=== PATIENT | male | born 1965 | race African-American/Black ===

== ENCOUNTER → 2020-11-15 | Outpatient (CLI) | payer OTHER ==
[2020-11-15] VITALS (12 sets, daily range): BP systolic 130–147; BP diastolic 78–95
[~2020-11-15] VITALS: Ht 175.3 cm; Wt 108.9 kg
[~2020-11-15] MED LIST: ASA81BEC PO; ATORVASTATIN CA80 MG PO; DILTIAZEM ER180 M2 PO; SINGULAIR 10 MG10 M1 PO
[2020-11-15 10:04] LABS: HEMATOCRIT 45.2 % (42.0-52.0); HEMOGLOBIN 14.9 gm/dL (14.0-18.0); MCH 31.3 pg (26.0-34.0); MCHC 32.9 g/dL (28.0-37.0); MCV 95.1 fL (80.0-100.0); MPV 9.1 fl. (7.2-11.1); RBC 4.76 mil/uL (4.50-6.00); WBC 5.8 thou/uL (4.0-11.0)
[2020-11-15 10:16] LABS: APTT 26.5 Seconds (25.0-31.3); INR 1.2; PROTIME 12.4 Seconds (9.20-11.50)
[2020-11-15 10:20] LABS: CALCIUM 8.9 mg/dL (8.5-10.1); CREATININE 1.3 mg/dL (0.6-1.3); POTASSIUM 3.9 mmol/L (3.5-5.1)
[2020-11-15 10:24] LABS: ALBUMIN 4.1 g/dL (3.4-5.0); TOTAL BILIRUBIN 0.8 mg/dL (<0.1-1.0); TOTAL PROTEIN 7.6 g/dL (6.4-8.2)
--- NOTE | 2020-11-15 13:54 | NUR ---
PATIENT WAS ASSISTED TO THE RESTROOM POST PROCEDURE. HE IS NOW BACK ON HIS BED BUT APPEARS AND STATES HE IS VERY SHORT OF BREATH. NO COMPLAINTS OF CHEST PAIN. INFORMED DR. CHAU AND EKG ORDERED. 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 BP ELEVATED AT 150/101
[2020-11-15 14:54] LABS: HEMATOCRIT 42.7 % (42.0-52.0); HEMOGLOBIN 14.6 gm/dL (14.0-18.0); MCH 31.6 pg (26.0-34.0); MCHC 34.2 g/dL (28.0-37.0); MCV 92.3 fL (80.0-100.0); RBC 4.62 mil/uL (4.50-6.00); RDW-CV 15.4 % (10.5-14.5); WBC 4.7 thou/uL (4.0-11.0)
--- NOTE | 2020-11-15 15:52 | EKG ---
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
--- NOTE | 2020-11-15 15:57 | EKG ---
[place] [address] ELECTROCARDIOGRAM REPORT Name: YUSRA LANDEROS Room: [facility]#: [id number] Admission: 11/15/20 Attend Phys: Raoul Ballesteros MD Discharge: Date of : 61 Date of Service: 11/15/20 1359 Report #: [id number] THIS REPORT FOR: //name// 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
[2020-11-15 16:00] LABS: CALCIUM 8.7 mg/dL (8.5-10.1); CREATININE 1.3 mg/dL (0.6-1.3); POTASSIUM 3.9 mmol/L (3.5-5.1)
--- NOTE | 2020-11-15 17:43 | CARD ---
[address] [address] CARDIAC CATH REPORT Name: YUSRA LANDEROS Room: [facility] Francis.#: [id number] Admission: 11/15/20 Attend Phys: Raoul Ballesteros MD, F Discharge: Date of : 61 Report #: [id number] THIS REPORT FOR: cc: Alireza Phillips James A. DO Blick, David R. MD [facility] ~ APPROVED REPORT Study performed: 11/15/2020 11:02:45 Patient Details Patient Status: Out-Patient Room #: The patient is a 55 year-old male Event Personnel Raoul Ballesteros Ream Cutter, Chavo Najera RN RN, Mary Alice Martin RTR Monitor, Clarice Salazar RTR Scrub, Maryse Rudolph RN Monitor Procedures Performed Art Access - R radial artery Left Heart Cath w/or w/o Coronaries [facility] PRANAV Place w/wo Plasty Single CIRC Hemostasis with Hemoband Indication Chest pain Risk Factors Arterial Hypertension, Hypercholesterolemia, Coronary Artery Disease Previous Procedures/Diagnoses Previous PCI Admission/Lab Medications/Medications given during procedure Aspirin, Glycoprotein IllbIlla Inhibitors, Platelet Aff. Inhib., Heparin Unfract. Procedure Narrative The patient was brought electively to the Cardiac Catheterization Laboratory and was prepped and draped in a sterile manner. The right wrist was infiltrated with 2% Lidocaine subcutaneous anesthesia. A Slender Glidesheath sheath was inserted into the right radial artery. Coronary angiography was performed using coronary diagnostic [address] [address] CARDIAC CATH REPORT Name: ARNULFO LANDEROSVIS Room: [facility] Julio#: [id number] Admission: 11/15/20 Attend Phys: Raoul Ballesteros MD, F Discharge: Date of : 61 Report #: [id number] catheters. The right coronary system was accessed and visualized with a Diagnostic JR4 catheter. The left coronary system was accessed and visualized with a Diagnostic JL4 catheter. The left ventricle was accessed and visualized with a Diagnostic PIGTAIL catheter. Left ventricular/Aortic Valve gradient assessed via catheter pullback. Left ventriculogram was performed in HERNANDEZ projection. Closure device was deployed with a 6 Fr vascband. The patient tolerated the procedure well and there were no complications associated with the procedure. There was no hematoma. Intraoperative Conscious Sedation Sedation start time: 11:37 Case end Time: 12:39 Fentanyl 25 mcg Versed 2 mg Fluoro Time: 10.1 minutes Dose: DAP [id number] cGycm2 2238 mGy Contrast Type and Amount: Visipaque 175 ml Coronary Angiography The patient's coronary anatomy is right dominant. Diagnostic Cath Left Main 0% stenosis LAD 0% stenosis Circumflex Stent in the mid circumflex that had a proximal 90% restenosis. A 90% stenosis was noted in the distal circumflex beyond the stent. Right Coronary 50% mid and 60% distal stenosis. Ramus 0% stenosis Left Ventriculography The left ventricular ejection fraction is estimated to be 45-50%. Left ventricular wall motion abnormalities are present. There is no mitral insufficiency. Moderate inferior wall hypokinesis. Hemodynamics The aortic pressure is 126/80 mmHg with a mean of 103 mmHg. The left ventricular pressure is 120/10 mmHg with a mean of mmHg. The left ventricular end diastolic pressure is 20 mmHg. There was no gradient across the aortic valve upon pullback. Pullback from the left ventricle to the aorta revealed no gradient [place] [address] CARDIAC CATH REPORT Name: YUSRA LANDEROS Room: [facility]#: [id number] Admission: 11/15/20 Attend Phys: Raoul Ballesteros MD, F Discharge: Date of : 61 Report #: [id number] PCI Technique Lesion Anticoagulation was achieved with Heparin. bolus of IV aggrastat given Percutaneous coronary intervention was performed on the mid circumflex artery segment. The lesion stenosis prior to intervention was 90% with FLORENCE 3 flow. A 6FR XB 3.5 100CM Guide Catheter was used to engage the lm ostium. A IG: BMW 190cm Interventional Guidewire was used to cross the lesion. BALLOON DILATION A Balloon catheter Mini Trek RX 2.0 X 8 was inserted and inflated up to 8.00atm for 15seconds. Repeat angiography revealed the following post-dilatation results: 40% stenosis. Additional Inflation: 12.00atm for 15seconds. Additional Inflation: 20.00atm for 16seconds. STENT DEPLOYMENT A drug-eluting stent David RX Stent 2.50N22kt was inserted and inflated up to 12.00atm for 19seconds. Repeat angiography revealed the following post-stent deployment results: 0% stenosis. Additional Inflation: 17.00atm for 16seconds. Additional Inflation: 19.00atm for 18seconds. Final angiography reveals 0 % stenosis with FLORENCE 3 flow. PCI Technique Lesion 2 Percutaneous Coronary Intervention was performed on the distal circumflex artery segment. Percutaneous coronary intervention was performed on the distal circumflex artery segment. The lesion stenosis prior to intervention was 90% with FLORENCE 3 flow. A xb3.5 Guide Catheter was used to engage the lm ostium. A bmw Interventional Guidewire was used to cross the lesion. Balloon Dilation A Balloon catheter 2.0 x 8 mm was inserted and inflated up to 8atm for 10seconds. Repeat angiography revealed the following post-dilatation results: 30% stenosis. Stent Deployment A drug-eluting stent David RX Stent 2.28M90ji was inserted and inflated up to 8.00atm for 11seconds. Repeat angiography revealed the following post-stent deployment results: 0% stenosis. Additional Inflation: 10atm for 9seconds. Additional Inflation: 12.00atm for 9seconds. Final angiography reveals 0 % stenosis with FL[place] 3 [place] [address] CARDIAC CATH REPORT Name: YUSRA LANDEROS Room: [facility] YvetteChristy#: [id number] Admission: 11/15/20 Attend Phys: Raoul Ballesteros MD, F Discharge: Date of : 61 Report #: [id number] Conclusion 1. Stent in the mid circumflex with a prxoimal 90% instent restenosis. A second 90% stenosis was notice distal to the stent. 2. LVEF 45-50% 3. successful placement of 2 drug eluting stents in the mid circumflex and distal circumflex. Recommendations Cardiac Rehabilitation Referral Aggressive Medical Therapy Medications Administered Prasugrel <ELECTRONICALLY SIGNED> By: Raoul Ballesteros MD, [facility] 11/15/20 1743 [id number] Ballesteros MD, FAC /INF
== END | disposition home or self-care (01) ==
LOC: M.CL 09:03 → EDBD 11:00 → M.CL 11:00
PROVIDERS: ATTEND Internal Medicine Cardiovascular Disease
DX: R07.9 Chest pain, unspecified (principal); I25.10 Atherosclerotic heart disease of native coronary artery without angina pectoris; T82.855A Stenosis of coronary artery stent, initial encounter; I10 Essential (primary) hypertension; E78.00 Pure hypercholesterolemia, unspecified; E78.5 Hyperlipidemia, unspecified; K21.9 Gastro-esophageal reflux disease without esophagitis; Z87.891 Personal history of nicotine dependence; Z98.890 Other specified postprocedural states; Z79.899 Other long term (current) drug therapy; Z88.8 Allergy status to other drugs, medicaments and biological substances; Z20.822 Contact with and (suspected) exposure to COVID-19